=== PATIENT | male | born 1975 | race Caucasian/White ===

== ENCOUNTER 2017-05-13 14:24 | Emergency (ER) | payer BC, OTHER ==
[2017-05-13] MEDS ORDERED: HYDROmorphone 0.5 MG/0.5 ML Syringe IVPUSH ONE ×2 (14:53→16:03)
[2017-05-13] MEDS ORDERED: Acetaminophen 325 MG Tab PO ONE (14:54)
[2017-05-13] MEDS ORDERED: Metoclopramide 10 MG/2 ML SDV IVPUSH ONE (14:54)
--- NOTE | 2017-05-13 14:57 | EDM.PDOC ---
ED HPI GENERAL MEDICAL PROBLEM - General Chief Complaint: Fever Stated Complaint: FEVER Time Seen by Provider: 05/13/17 14:53 Source of Information: Reports: Patient, Family (spouse) History Limitations: Reports: No Limitations - History of Present Illness INITIAL COMMENTS - FREE TEXT/NARRATIVE: 42-year-old male attends the ED in the Imminent of his . Acute onset of illness over the last 24 hours with severe sore throat to the point that he can swallow. Patient still has his tonsils in. He was temperatures 104 when he had claude rigors during the night. He today has vomited 3. Bilious emesis no diarrhea. Denies cough or sputum production. Feels so thirsty but unable to keep down fluids. Usually he is otherwise well. He's currently not taking any medications. He is allergic to Ancef. Onset: Sudden Onset Date: 05/12/17 Duration: Hour(s): (Complained of sore throat about 2000 hrs. last night and has progressed gradually progressed intensity and severity.), Getting Worse Location: Reports: Generalized Quality: Reports: Ache, Burning, Stabbing, Throbbing Severity: Severe Improves with: Reports: None Worsens with: Reports: Other Context: Denies: Activity, Exercise (Trying to swallow), Lifting, Sick Contact, Trauma, Other Associated Symptoms: Reports: Diaphoresis, Fever/Chills, Headaches, Loss of Appetite, Malaise, Nausea/Vomiting, Weakness (Generalized.). Denies: Cough, cough w sputum, Rash, Seizure, Shortness of Breath, Syncope Treatments [employer]: Reports: Acetaminophen Headache Pain Score (Numeric/FACES): 8 - Related Data Allergies Allergy/AdvReac Type Severity Reaction Status Date / Time cefazolin [From Ancef] Allergy Respiratory Verified 05/13/17 14:41 Depression sertraline [From Zoloft] Allergy Anxiety Verified 05/13/17 14:42 Home Meds: Home Meds Naproxen [Naprosyn] 500 mg PO Q12HR PRN #10 tablet 12/29/16 [Rx] Orphenadrine [Norflex] 100 mg PO BID PRN #14 tab.er 12/29/16 [Rx] Azithromycin [Zithromax] 500 mg IV Q24H #7 adv 05/13/17 [Rx] oxyCODONE HCl/Acetaminophen [Percocet 5-325 mg Tablet] 1 - 2 each PO Q4H PRN # 20 tablet 05/13/17 [Rx] Past Medical History Respiratory History: Reports: Asthma Other Respiratory History: Exercise induced asthma Gastrointestinal History: Reports: Other (See Below) Other Gastrointestinal History: ulcerative collittis Musculoskeletal History: Reports: Fracture, Neck Pain, Chronic Other Musculoskeletal History: left leg, foot skull bilat arms, all ribs Neurological History: Reports: Concussion, Head Trauma Psychiatric History: Reports: PTSD Hematologic History: Reports: Blood Transfusion(s) - Past Surgical History Musculoskeletal Surgical History: Reports: Other (See Below) Social & Family History - Family History Family Medical History: Noncontributory - Tobacco Use Smoking Status *Q: Former Smoker - Caffeine Use Caffeine Use: Reports: Coffee, Energy Drinks, Soda, Tea - Recreational Drug Use Recreational Drug Use: No - Living Situation & Occupation Living situation: Reports: Occupation: Employed ED ROS ENT - Review of Systems Review Of Systems: See Below Constitutional: Reports: Fever, Chills, Malaise, Weakness, Fatigue, Decreased Appetite. Denies: Weight Loss HEENT: Reports: Throat Pain, Throat Swelling. Denies: Ear Pain Respiratory: Reports: No Symptoms. Denies: Cough Cardiovascular: Reports: No Symptoms Endocrine: Reports: Fatigue GI/Abdominal: Reports: Nausea, Vomiting : Reports: No Symptoms Musculoskeletal: Reports: Muscle Pain (Generalized myalgia.) Skin: Reports: No Symptoms Neurological: Reports: Dizziness, Headache, Difficulty Walking, Weakness (Due to weakness). Denies: Paresthesia, Pre-Existing Deficit, Seizure, Syncope, Tremors, Trouble Speaking, Gait Disturbance Psychiatric: Reports: No Symptoms Hematologic/Lymphatic: Reports: No Symptoms Immunologic: Reports: No Symptoms ED EXAM, ENT - Physical Exam Exam: See Below Exam Limited By: No Limitations General Appearance: Alert, WD/WN, Moderate Distress (Very apprehensive and very warm to palpation.) Eye Exam: Bilateral Eye: Normal Inspection Ears: TM Erythema (Both ears are little erythematous right is a little bit bulging.) Nose: Normal Inspection, Normal Mucousa Mouth/Throat: Pharyngeal Erythema, Throat Pain, Throat Swelling, Tonsillar Erythema, Tonsillar Swelling. No: Peritonsillar Mass, Teething, Tonsillar Exudates Head: Atraumatic, Normocephalic Neck: Normal Inspection, Supple, Non-Tender, Full Range of Motion. No: Lymphadenopathy (L), Lymphadenopathy (R) Respiratory/Chest: No Respiratory Distress, Lungs Clear, Normal Breath Sounds, No Accessory Muscle Use, Respiratory Distress (Mild tachypnea at rest.) Cardiovascular: Normal Peripheral Pulses, No Edema (Tachycardia at rest 102/m on my assessment.), No Gallop, No Murmur, No Rub, Tachycardia GI/Abdominal: Normal Bowel Sounds, Soft, Non-Tender, No Organomegaly. No: Guarding, Rigid, Rebound Back: Normal Inspection, Full Range of Motion. No: CVA Tenderness (L), CVA Tenderness (R) Extremities: Normal Inspection, Normal Range of Motion, Non-Tender, No Pedal Edema, Normal Capillary Refill Neurological: Alert, Oriented, CN II-XII Intact, Normal Cognition, Abnormal Gait Psychiatric: Normal Affect, Normal Mood Skin: Warm, Dry, Intact, Normal Color, No Rash Course - Vital Signs Last Recorded V/S: Last Vital Signs Temp 37.8 C 05/13/17 15:58 Pulse 85 05/13/17 14:42 Resp 18 05/13/17 14:42 BP 144/80 H 05/13/17 14:42 Pulse Ox 96 05/13/17 14:42 - Orders/Labs/Meds Orders: Active Orders 24 hr Category Date Time Status Chest 1V Frontal [CR] Stat Exams 05/13/17 14:55 Taken CULTURE BLOOD [BC] Stat Lab 05/13/17 15:15 Received CULTURE BLOOD [BC] Stat Lab 05/13/17 15:25 Received URINALYSIS W/MICROSCOPIC [UA W/MICROSCOPIC] [URIN] Stat Lab 05/13/17 14:55 Uncollected Dextrose 5%-0.9% NaCl [Dextrose 5%-Normal Saline] 1,000 Med 05/13/17 15:00 Active ml IV ASDIRECTED Ketorolac [Toradol] Med 05/13/17 15:00 Active 30 mg IVPUSH ONETIME Blood Culture x2 Reflex Set [OM.PC] Stat Oth 05/13/17 14:55 Ordered Medication Orders Dextrose/Sodium Chloride (Dextrose 5%-Normal Saline) 1,000 mls @ 999 mls/hr IV ASDIRECTED ZEKE Last Admin: 05/13/17 15:05 Dose: 999 mls/hr Ketorolac Tromethamine (Toradol) 30 mg IVPUSH ONETIME ZEKE Last Admin: 05/13/17 16:06 Dose: 30 mg Labs: Laboratory Tests 05/13/17 05/13/17 05/13/17 Range/Units 14:44 14:44 15:25 WBC 23.96 H (4.23-9.07) K/mm3 RBC 5.35 (4.63-6.08) M/mm3 Hgb 16.0 (13.7-17.5) gm/L Hct 45.7 (40.1-51.0) % MCV 85.4 (79.0-92.2) fl MCH 29.9 (25.7-32.2) pg MCHC 35.0 (32.2-35.5) g/dl RDW Std Deviation 43.0 (35.1-43.9) fL Plt Count 245 (163-337) K/mm3 MPV 10.1 (9.4-12.3) fl Neutrophils % (Manual) 89 H (40-60) % Band Neutrophils % 1 (0-10) % Lymphocytes % (Manual) 6 L (20-40) % Atypical Lymphs % 0 % Monocytes % (Manual) 3 (2-10) % Eosinophils % (Manual) 1 (0.8-7.0) % Basophils % (Manual) 0 L (0.2-1.2) Platelet Estimate Adequate RBC Morph Comment Normal Sodium 135 L (136-145) mEq/L Potassium 3.6 (3.5-5.1) mEq/L Chloride 100 (98-107) mEq/L Carbon Dioxide 23 (21-32) mEq/L Anion Gap 15.6 H (5-15) BUN 12 (7-18) mg/dL Creatinine 1.4 H (0.7-1.3) mg/dL Est Cr Clr Drug Dosing 78.47 mL/min Estimated GFR (MDRD) 56 (>60) mL/min BUN/Creatinine Ratio 8.6 L (14-18) Glucose 151 H (74-106) mg/dL Lactic Acid 1.4 (0.4-2.0) mmol/L Calcium 8.6 (8.5-10.1) mg/dL Total Bilirubin 0.7 (0.2-1.0) mg/dL AST 18 (15-37) U/L ALT 42 (16-63) U/L Alkaline Phosphatase 92 (46-116) U/L C-Reactive Protein 7.9 H* (<1.0) mg/dL Total Protein 7.8 (6.4-8.2) g/dl Albumin 4.1 (3.4-5.0) g/dl Globulin 3.7 gm/dL Albumin/Globulin Ratio 1.1 (1-2) Meds: Medications Generic Name Dose Route Start Last Admin Trade Name Freq PRN Reason Stop Dose Admin Dextrose/Sodium Chloride 1,000 mls @ 999 mls/hr 05/13/17 15:00 05/13/17 15:05 Dextrose 5%-Normal Saline IV 999 mls/hr ASDIRECTED ZEKE Administration Ketorolac Tromethamine 30 mg 05/13/17 15:00 05/13/17 16:06 Toradol IVPUSH 30 mg ONETIME ZEKE Administration Discontinued Medications Generic Name Dose Route Start Last Admin Trade Name Freq PRN Reason Stop Dose Admin Acetaminophen 975 mg 05/13/17 14:54 05/13/17 15:58 Tylenol PO 05/13/17 14:55 975 mg NOW ONE Administration Hydromorphone HCl 0.5 mg 05/13/17 14:53 05/13/17 15:05 Dilaudid IVPUSH 05/13/17 14:54 0.5 mg ONETIME ONE Administration Hydromorphone HCl 0.5 mg 05/13/17 16:03 05/13/17 16:11 Dilaudid IVPUSH 05/13/17 16:04 0.5 mg ONETIME ONE Administration Levofloxacin/Dextrose 750 mg/ 150 mls @ 100 mls/hr 05/13/17 15:03 05/13/17 15 :56 Premix IV 05/13/17 16:32 100 mls/hr ONETIME ONE Administration Sodium Chloride 1,000 mls @ 999 mls/hr 05/13/17 16:42 05/13/17 16:47 Normal Saline IV 05/13/17 17:42 999 mls/hr ONETIME ONE Administration Metoclopramide HCl 10 mg 05/13/17 14:54 05/13/17 15:02 Reglan IVPUSH 05/13/17 14:55 10 mg ONETIME ONE Administration - Radiology Interpretation Free Text/Narrative:: 42-year-old male attends the ED with acute onset of high fever of 140 and associated severe sore throat. This started last night about 100 hours and has progressed severely in intensity. He's vomited 3 today and appears quite toxic. Is very warm to palpation on examination. Ears show erythema bilaterally and dullness by think before fever. Oropharynx shows diffuse pharyngitis with erythema without exudate evident. No cervical adenopathy noted. Neck is supple. Chest is clear postage percussions mild tachycardia at rest. Benign abdominal examination integument normal. Suspect strep pharyngitis. Plan D5 normal saline at open. Given Dilaudid 0.5 mg IV with Toradol 30 mg IV and Reglan 10 mg IV for pain and nausea relief. Will receive 975 mils grams of Tylenol in 20 minutes after the Reglan is been instilled to bring his fever down. Will give Levaquin 750 mg IV once blood cultures 2 been collected since he is allergic to Ancef. - Re-Assessments/Exams Free Text/Narrative Re-Assessment/Exam: 05/13/17 16:26 CXR suggests a little infiltrate in the right lower lobe indicating possible early pneumonia. labs are back showing a white count of 23.96 with a marked left shift of 89% neutrophils 1% band cells. Hemoglobin is 16.0 hematocrit of 45.7. Sodium 135 potassium 3.6. Chloride 100 bicarbonate 23. And a gap is 15.6. Creatinine 1.4. Glucose 151. Lactic acid is 1.4. CRP is elevated at 7.9 patient's throat swab was positive for group A strep. is allergic to Ancef. He is receiving Levaquin 750 mg IV. He'll having a headache and he had not yet received his Toradol. Therefore Toradol 30 g will be given IV and I did give another dose of 0.5 mg of Dilaudid for headache and body ache relief. 05/13/17 16:59 will hang second liter of normal saline IV until he is feeling better. Tentatively he will be discharged home on oral antibiotics Zithromax 500 mg daily for 3 days then 250 mg once daily for 4 more days. He is acutely toxic from the current streptococcal infection. Will be off work until next week. Pain medicine will be Percocet 5/325 one or 2 every 4-6 hours as needed for pain relief in combination with Motrin 600 mg every 6 hours for fever and pain relief. 05/13/17 17:43 he is cooled off substantially fever is gone. Still has a quite a bad headache. He can use Percocet for this. I did write a Percocet prescription through the instrumented machine will not need antibiotic until tomorrow. They will have to go to the drugstore to warehouse picker some Advil for him. Departure - Departure Time of Disposition: 17:44 Disposition: Home, Self-Care 01 Condition: Fair Clinical Impression: Streptococcal pharyngitis - Discharge Information Prescriptions: Azithromycin [Zithromax] 500 mg IV Q24H #7 adv oxyCODONE HCl/Acetaminophen [Percocet 5-325 mg Tablet] 1 - 2 each PO Q4H PRN # 20 tablet PRN Reason: pain relief. Referrals: PCP,None [Primary Care Provider] - Forms: ED Department Discharge, Return to Work/School Form Additional Instructions: Evaluation the emergent today in regards to acute febrile illness with severe sore throat. Identified to be group a Streptococcus positive from throat culture. This is caused a significant elevation of your white blood cell count and counts her current illness of generalized body ache headache etc. He received initial treatment in the ED to lower fever with Tylenol by mouth Toradol 30 mg IV. Given initial dose of antibiotic Levaquin 750 mg IV and rehydrated with normal saline. Dilaudid 0.5 mg 2 doses was given for pain relief. Reglan 10 mg IV for nausea. Treatment at home is to try and drink as much fluids as possible particularly Gatorade or Powerade which is identical to IV fluid replacement therapy. We'll need to start antibiotic Zithromax 500 mg once daily for 7 more days tomorrow morning. These had a boxer 24-hour lasting. Fever relief to be Motrin 600 mg every 6 hours which will leave a moderate amount of pain and headache as well Percocet tabs 03/12/25 one or 2 every 4-6 hours for pain relief not controlled by Motrin alone. Off work for the next 2 days until the fever settles and you can get back to eating regular diet. Expect improvement over the next 36 hours. - My Orders Last 24 Hours: My Active Orders 05/13/17 14:55 Chest 1V Frontal [CR] Stat URINALYSIS W/MICROSCOPIC [UA W/MICROSCOPIC] [URIN] Stat Blood Culture x2 Reflex Set [OM.PC] Stat 05/13/17 15:00 Dextrose 5%-0.9% NaCl [Dextrose 5%-Normal Saline] 1,000 ml IV ASDIRECTED Ketorolac [Toradol] 30 mg IVPUSH ONETIME 05/13/17 15:15 CULTURE BLOOD [BC] Stat 05/13/17 15:25 CULTURE BLOOD [BC] Stat - Assessment/Plan Last 24 Hours: My Active Orders 05/13/17 14:55 Chest 1V Frontal [CR] Stat URINALYSIS W/MICROSCOPIC [UA W/MICROSCOPIC] [URIN] Stat Blood Culture x2 Reflex Set [OM.PC] Stat 05/13/17 15:00 Dextrose 5%-0.9% NaCl [Dextrose 5%-Normal Saline] 1,000 ml IV ASDIRECTED Ketorolac [Toradol] 30 mg IVPUSH ONETIME 05/13/17 15:15 CULTURE BLOOD [BC] Stat 05/13/17 15:25 CULTURE BLOOD [BC] Stat
[2017-05-13] MEDS ORDERED: Dextrose 5%-0.9% NaCl 1,000 ML IV SCH (15:00)
[2017-05-13] MEDS ORDERED: Ketorolac 30 MG/ML SDV IVPUSH SCH (15:00)
[2017-05-13] MEDS ORDERED: Levofloxacin/Dextrose 5%-Water 750 MG in Premix Bag 1 BAG IV ONE (15:03)
[2017-05-13] MEDS ORDERED: Sodium Chloride 0.9% 1,000 ML IV ONE (16:42)
[2017-05-13 18:59] VITALS: BP 113/61
--- NOTE | 2017-05-14 08:02 | CR ---
Chest: Portable view of the chest was obtained. Comparison: No previous study. Heart size and mediastinum are within normal limits for portable technique. Lungs are clear. Bony structures are grossly intact. Impression: 1. Nothing acute is identified on portable chest x-ray. Diagnostic code #1
== END 2017-05-13 19:01 | disposition home or self-care (01) ==
LOC: JD.ED 14:24
DX: J02.0 Streptococcal pharyngitis (principal); J45.909 Unspecified asthma, uncomplicated; Z88.1 Allergy status to other antibiotic agents; Z88.8 Allergy status to other drugs, medicaments and biological substances; Z87.891 Personal history of nicotine dependence
CPT/HCPCS: 36415; 71010; 80053; 81001; 83605; 85025; 86140; 87040; 87430; 96361; 96365; 96375; 96376; 99284; A9270; J1170; J1885; J1956; J2765; J7040; J7042; 99283

== ENCOUNTER 2018-08-09 00:35 | Emergency (ER) | payer BC ==
[2018-08-09 00:49] VITALS: BP 142/86
[2018-08-09] MEDS ORDERED: Ketorolac 30 MG/ML SDV IVPUSH SCH (01:00)
[2018-08-09] MEDS ORDERED: Sodium Chloride 0.9% 1,000 ML IV SCH (01:00)
--- NOTE | 2018-08-09 01:01 | EDM.PDOC ---
ED HPI GENERAL MEDICAL PROBLEM - General Chief Complaint: Chest Pain Stated Complaint: CHEST PAIN Time Seen by Provider: 08/09/18 00:56 Source of Information: Reports: Patient History Limitations: Reports: No Limitations - History of Present Illness INITIAL COMMENTS - FREE TEXT/NARRATIVE: 43-year-old male presents to the ED with a three-hour history of left precordial chest discomfort rating through to his back under his scapula. Radiates around the left lateral thorax into his back. Does hurt to take a deep breath. He has no cough or sputum production no fever or chills. No history of coronary disease. Takes only Concerta for ADD H. Has no known history of hypertension. He chews tobacco. Pain came on while at work [place] of [facility]. He works on a [employer] crew. Has never had heartburn. Occasional alcohol user. Onset: Sudden Onset Date: 08/08/18 Onset Time: 22:30 Duration: Hour(s): Location: Reports: Chest (Precordial chest pain radiating along the left thoracic ribs into his infrascapular area. Pain also radiates into the left shoulder and medial arm to the elbow. Describes it as a deep aching pain worsened by deep breathing with a sharp component at that time. ) Quality: Reports: Ache, Dull, Stabbing (With deep breathing I pleuritic component to the pain) Severity: Moderate (It's the pain is 4 out of 10.) Improves with: Reports: Rest Worsens with: Reports: Other (Certain movements make it worse and deep breathing makes it worse.) Context: Reports: Other (Sudden onset of left precordial chest pain while at work tonight.). Denies: Activity, Exercise, Lifting, Sick Contact, Trauma Associated Symptoms: Reports: Chest Pain, Shortness of Breath. Denies: Confusion, Cough, Diaphoresis, Fever/Chills, Headaches, Loss of Appetite, Nausea /Vomiting, Rash, Seizure, Syncope (Pain is worsened by deep breathing) Treatments JOB CAPTAIN: Reports: Other (see below) (None.) Middle Chest Pain Score (Numeric/FACES): 7 - Related Data Allergies Allergy/AdvReac Type Severity Reaction Status Date / Time cefazolin [From Ancef] Allergy Respiratory Verified 08/09/18 00:50 Depression sertraline [From Zoloft] Allergy Anxiety Verified 08/09/18 00:50 Home Meds: Home Meds Methylphenidate HCl [Concerta] 36 mg PO DAILY 08/09/18 [History] Past Medical History Respiratory History: Reports: Asthma Other Respiratory History: Exercise induced asthma Gastrointestinal History: Reports: Other (See Below) Other Gastrointestinal History: ulcerative collittis Musculoskeletal History: Reports: Fracture, Neck Pain, Chronic Other Musculoskeletal History: left leg, foot skull bilat arms, all ribs Neurological History: Reports: Concussion, Head Trauma Psychiatric History: Reports: PTSD Hematologic History: Reports: Blood Transfusion(s) - Past Surgical History Musculoskeletal Surgical History: Reports: Other (See Below) Social & Family History - Family History Family Medical History: Noncontributory - Caffeine Use Caffeine Use: Reports: Coffee, Energy Drinks, Soda, Tea - Living Situation & Occupation Living situation: Reports: Occupation: Employed ED ROS GENERAL - Review of Systems Review Of Systems: See Below Constitutional: Denies: Fever, Chills, Malaise, Weakness, Fatigue, Decreased Appetite, Weight Loss HEENT: Reports: No Symptoms Respiratory: Reports: Shortness of Breath, Pleuritic Chest Pain (Hurts to take a deep breath at this time.). Denies: Cough ( Appointment pleuritic left-sided chest pain with deep breathing.), Sputum, Hemoptysis Cardiovascular: Reports: Chest Pain. Denies: Blood Pressure Problem (Left precordium starting about 20-30 hours last evening while at work.), Claudication , Dyspnea on Exertion, Edema, Lightheadedness, Orthopnea, Palpitations Endocrine: Reports: No Symptoms GI/Abdominal: Reports: No Symptoms : Reports: No Symptoms Musculoskeletal: Reports: Back Pain (Does have some pain in the infrascapular area on left side.) Skin: Reports: No Symptoms Neurological: Reports: No Symptoms Psychiatric: Reports: No Symptoms Hematologic/Lymphatic: Reports: No Symptoms Immunologic: Reports: No Symptoms ED EXAM, GENERAL - Physical Exam Exam: See Below Exam Limited By: No Limitations General Appearance: Alert, WD/WN, Anxious, Mild Distress, Other (Vital signs revealed a slightly elevated at 142/86. Respiratory rate of 14/m with O2 sats of 99% on room air. Afebrile.) Eye Exam: Bilateral Eye: Normal Inspection Throat/Mouth: Normal Inspection, Normal Lips, Normal Teeth, Normal Oropharynx Head: Atraumatic, Normocephalic Neck: Normal Inspection, Supple, Non-Tender, Full Range of Motion. No: Carotid Bruit, Lymphadenopathy (L), Lymphadenopathy (R) Respiratory/Chest: No Respiratory Distress, Lungs Clear, Normal Breath Sounds, No Accessory Muscle Use, Other (Does have chest wall tenderness ribs to 3 and 4 particular the fourth rib in the midclavicular line and into the left mid axillary line along the fourth rib.) Cardiovascular: Normal Peripheral Pulses, Regular Rate, Rhythm, No Edema, No Gallop, No Murmur Peripheral Pulses: 3+: Carotid (L), Carotid (R), Posterior Tibial (L), Posterior Tibial (R), Dorsalis Pedis (L), Dorsalis Pedis (R) GI/Abdominal: Normal Bowel Sounds, Soft, Non-Tender, No Organomegaly, Other ( Previous appendectomy with scar noted) Back Exam: Normal Inspection, Full Range of Motion, Other (Tender to palpation over rib head thoracic 6 left back. Mild overlying muscle spasm.). No: CVA Tenderness (L), CVA Tenderness (R) Extremities: Normal Inspection, Normal Range of Motion, Non-Tender, No Pedal Edema, Normal Capillary Refill Neurological: Alert, Oriented, CN II-XII Intact, Normal Cognition, Normal Gait Psychiatric: Normal Affect, Normal Mood Skin Exam: Warm, Dry, Intact, Normal Color, No Rash EKG INTERPRETATION EKG Date: 08/09/18 Time: 00:47 Rhythm: NSR Rate (Beats/Min): 60 [place]: Normal P-Wave: Present QRS: Normal ST-T: Normal (Mildly prolonged for rate) QT: Prolonged EKG Interpretation Comments: No signs of ischemia. Essentially normal ECG Course - Vital Signs Last Recorded V/S: Last Vital Signs Temp 36.2 C 08/09/18 00:45 Pulse 62 08/09/18 00:45 Resp 13 08/09/18 00:45 BP 142/86 H 08/09/18 00:45 Pulse Ox 99 08/09/18 00:45 - Orders/Labs/Meds Orders: Active Orders 24 hr Category Date Time Status EKG Documentation Completion [RC] STAT Care 08/09/18 00:56 Active Chest 1V Frontal [CR] Stat Exams 08/09/18 00:56 Taken Ketorolac [Toradol] Med 08/09/18 01:00 Active 30 mg IVPUSH ONETIME Sodium Chloride 0.9% [Normal Saline] 1,000 ml Med 08/09/18 01:00 Active IV ASDIRECTED Medication Orders Sodium Chloride (Normal Saline) 1,000 mls @ 125 mls/hr IV ASDIRECTED ZEKE Last Admin: 08/09/18 01:04 Dose: 125 mls/hr Ketorolac Tromethamine (Toradol) 30 mg IVPUSH ONETIME ZEKE Last Admin: 08/09/18 01:04 Dose: 30 mg Labs: Laboratory Tests 08/09/18 08/09/18 08/09/18 Range/Units 00:58 00:59 01:05 WBC 8.23 (4.23-9.07) K/mm3 RBC 5.04 (4.63-6.08) M/mm3 Hgb 14.8 (13.7-17.5) gm/L Hct 43.4 (40.1-51.0) % MCV 86.1 (79.0-92.2) fl MCH 29.4 (25.7-32.2) pg MCHC 34.1 (32.2-35.5) g/dl RDW Std Deviation 45.1 H (35.1-43.9) fL Plt Count 302 (163-337) K/mm3 MPV 9.6 (9.4-12.3) fl Neutrophils % (Manual) 46 (40-60) % Band Neutrophils % 1 (0-10) % Lymphocytes % (Manual) 45 H (20-40) % Atypical Lymphs % 0 % Monocytes % (Manual) 4 (2-10) % Eosinophils % (Manual) 4 (0.8-7.0) % Basophils % (Manual) 0 L (0.2-1.2) Platelet Estimate Adequate RBC Morph Comment Normal D-Dimer, Quantitative < 0.19 L (0.19-0.50) mg/L Sodium 137 (136-145) mEq/L Potassium 3.6 (3.5-5.1) mEq/L Chloride 104 (98-107) mEq/L Carbon Dioxide 25 (21-32) mEq/L Anion Gap 11.6 (5-15) BUN 15 (7-18) mg/dL Creatinine 1.2 (0.7-1.3) mg/dL Est Cr Clr Drug Dosing 88.02 mL/min Estimated GFR (MDRD) > 60 (>60) mL/min BUN/Creatinine Ratio 12.5 L (14-18) Glucose 91 (74-106) mg/dL Calcium 8.8 (8.5-10.1) mg/dL Total Bilirubin 0.4 (0.2-1.0) mg/dL AST 18 (15-37) U/L ALT 38 (16-63) U/L Alkaline Phosphatase 104 (46-116) U/L CK-MB (CK-2) 2.4 (0-3.6) ng/ml Troponin I < 0.017 (0.00-0.056) ng/mL Total Protein 7.2 (6.4-8.2) g/dl Albumin 3.8 (3.4-5.0) g/dl Globulin 3.4 gm/dL Albumin/Globulin Ratio 1.1 (1-2) Meds: Medications Generic Name Dose Route Start Last Admin Trade Name Freq PRN Reason Stop Dose Admin Sodium Chloride 1,000 mls @ 125 mls/hr 08/09/18 01:00 08/09/18 01:04 Normal Saline IV 125 mls/hr ASDIRECTED ZEKE Administration Ketorolac Tromethamine 30 mg 08/09/18 01:00 08/09/18 01:04 Toradol IVPUSH 30 mg ONETIME ZEKE Administration Discontinued Medications Generic Name Dose Route Start Last Admin Trade Name Freq PRN Reason Stop Dose Admin Methylprednisolone Sodium Succinate 125 mg 08/09/18 02:14 08/09/18 02:21 Solu-Medrol IVPUSH 08/09/18 02:15 125 mg ONETIME ONE Administration - Radiology Interpretation Free Text/Narrative:: 43-year-old male presents to the ED with a 2-1/2 hour history of left precordial chest pain. Pain is constant and radiates into his left infrascapular area into the left shoulder and medial aspect of the left arm. Pain radiate along the left thorax around into his back. Pain is worsened by deep breathing eye pleuritic component to the pain. No cough or sputum production. No history of coronary disease. Examination reveals significant chest wall pain ribs to 3 and 4 particular the fourth rib midclavicular line and into the left midaxillary line. Also has a rib head subluxation at thoracic 6 in his left upper back. HEENT appears to be musculoskeletal in origin. ECG is normal sinus rhythm at 60/m with no signs of ischemia. Plan IV normal saline at 125 mils per hour. Given Toradol 30 mg IV for pain relief. Plan routine labs in one view chest x-ray to be done - Re-Assessments/Exams Free Text/Narrative Re-Assessment/Exam: 08/09/18 01:20 chest x-ray done portable is within normal limits. Normal cardiac silhouette. Clear lung amos. No obvious abnormal lesions of the ribs 08/09/18 01:40 Hematology is back. Reveals a normal white count at 8.23. 46% neutrophils 1% bands and 45% lymphocytes suggesting a viral infection. Hemoglobin is 14.8 with hematocrit of 43.4. Platelet count is normal 302,000. D- dimer is less than 0.19. 08/09/18 02:08 Chemistry is back. Sodium is 137 with potassium of 3.6. Cord is 104 with a bicarbonate 25 .anion gap.Is 11.6. BUN is 15 with a creatinine of 1.2. GFR is greater than 60. Glucose is 91. Calcium is 8.8. Liver function is normal. CK-MB fraction is 2.4. Troponin I is less than 0.017. Therefore labs reveal no evidence of heart related illness. His chest wall in origin probably viral in origin. Will give him Cymetra 125 mg IV. He will use ibuprofen 600 mg every 6 hours needed for relief of chest wall pain or Aleve 2 tablets every 8 hours until better. Departure - Departure Time of Disposition: 02:11 Disposition: Home, Self-Care 01 Condition: Fair Clinical Impression: Acute chest wall pain Instructions: Chest Wall Pain, [id number] Referrals: Jose Whitaker Jr, MD [Primary Care Provider] - Forms: ED Department Discharge, ED Return to Work/School Form Additional Instructions: Evaluation the emergency room tonight in regards to development of diffuse left anterior chest wall pain rating to your left back. Ulcerated interior left shoulder and inner arm. He started about 2 and half to 3 hours prior to coming to the ED. Examination reveals marked chest wall pain on patient of ribs to 3 and 4 particular the fourth rib in the anterior chest wall. This rib has a nerve the troubles underneath it and into her left arm. Examination her back shows a rib head subluxations or mild dislocation of the rib head at thoracic level 6. Is is likely the cause of your upper back pain. This is usually slipped back into place by a chiropractor if needed. Complete workup carried out in the ED revealed no evidence of heart related illness. ECG and chest x- ray were normal. Also labs for heart attack by clot in the lung were negative. Pain is due to inflammation of the lining of the rib in your anterior chest wall. Cause inflammation of the underlying nerve with referred pain into her upper back. Treatment in the ED was Toradol 30 mg intravenously and Solu-Medrol 125 mg IV to relieve pain and inflammation. Treatment at home is Motrin 600 mg every 6 hours or Aleve 2 tablets every 8 hours as needed for the next 3-5 days until pain settles down completely. Note this pain can last as long as 10-14 days but should improve over the next 2 days with anti-inflammatory treatment. May return to work finish out her shift tonight if you so desire with no restrictions. - My Orders Last 24 Hours: My Active Orders 08/09/18 00:56 EKG Documentation Completion [RC] STAT Chest 1V Frontal [CR] Stat 08/09/18 01:00 Ketorolac [Toradol] 30 mg IVPUSH ONETIME Sodium Chloride 0.9% [Normal Saline] 1,000 ml IV ASDIRECTED - Assessment/Plan Last 24 Hours: My Active Orders 08/09/18 00:56 EKG Documentation Completion [RC] STAT Chest 1V Frontal [CR] Stat 08/09/18 01:00 Ketorolac [Toradol] 30 mg IVPUSH ONETIME Sodium Chloride 0.9% [Normal Saline] 1,000 ml IV ASDIRECTED
[2018-08-09] MEDS ORDERED: methylPREDNISolone Sodium Succinate 125 MG/2 ML SDV IVPUSH ONE (02:14)
--- NOTE | 2018-08-09 17:18 | CR ---
Chest: Portable view of the chest was obtained. Comparison: Chest x-ray of 05/13/17. Heart size and mediastinum are normal. Lungs are clear. Bony structures are grossly intact. Impression: 1. Nothing acute is appreciated on portable chest x-ray. Diagnostic code #1
== END 2018-08-09 02:30 | disposition home or self-care (01) ==
LOC: JD.ED 00:35
DX: R07.2 Precordial pain (principal); J45.909 Unspecified asthma, uncomplicated; F17.290 Nicotine dependence, other tobacco product, uncomplicated; Z88.8 Allergy status to other drugs, medicaments and biological substances; Z79.899 Other long term (current) drug therapy
CPT/HCPCS: 36415; 71045; 80053; 82553; 84484; 85007; 85027; 85379; 93005; 96361; 96374; 96375; 99285; J1885; J2930; J7040; 93010; 99284-25

== ENCOUNTER 2019-10-21 15:57 | Emergency (ER) | payer BC ==
[2019-10-21 16:09] VITALS: BP 133/90; PULSE 66
--- NOTE | 2019-10-21 16:17 | EDM.PDOC ---
ED HPI GENERAL MEDICAL PROBLEM - General Chief Complaint: Headache Stated Complaint: SPINALTAP MON NOW HEADACHE & NAUSEA WHEN STANDING Time Seen by Provider: 10/21/19 16:12 Source of Information: Reports: Patient, RN Notes Reviewed - History of Present Illness INITIAL COMMENTS - FREE TEXT/NARRATIVE: 44-year-old male comes in with headache. Tap done by radiology in [place] 3 days ago. He states he felt well enough to work the next day. He did develop mild headache throughout that day. They when driving he developed "severe headache. It sounds like he just got back to town not too long ago and continues to have very severe headache today. Because worse sitting and standing but he continues to have moderate headache at rest lying down as well. He states he has vomited a couple of times, no cough fever or chills. He denies history of prior headaches. He states the spinal tap was done for "MS type symptoms". Head Pain Score (Numeric/FACES): 8 - Related Data Allergies Allergy/AdvReac Type Severity Reaction Status Date / Time cefazolin [From Ancef] Allergy Respiratory Verified 10/21/19 16:04 Depression sertraline [From Zoloft] Allergy Anxiety Verified 10/21/19 16:04 Home Meds: Home Meds Methylphenidate HCl [Concerta] 36 mg PO DAILY 08/09/18 [History] Past Medical History Respiratory History: Reports: Asthma Other Respiratory History: Exercise induced asthma Gastrointestinal History: Reports: Other (See Below) Other Gastrointestinal History: ulcerative collittis Musculoskeletal History: Reports: Fracture, Neck Pain, Chronic Other Musculoskeletal History: left leg, foot skull bilat arms, all ribs Neurological History: Reports: Concussion, Head Trauma Psychiatric History: Reports: PTSD Hematologic History: Reports: Blood Transfusion(s) - Past Surgical History Musculoskeletal Surgical History: Reports: Other (See Below) Social & Family History - Family History Family Medical History: Noncontributory - Caffeine Use Caffeine Use: Reports: Coffee, Energy Drinks, Soda, Tea - Living Situation & Occupation Living situation: Reports: Occupation: Employed ED ROS GENERAL - Review of Systems Review Of Systems: See Below Constitutional: Denies: Fever, Chills, Diaphoresis HEENT: Denies: Sinus Problem, Throat Pain Respiratory: Denies: Shortness of Breath Cardiovascular: Denies: Chest Pain GI/Abdominal: Denies: Abdominal Pain Musculoskeletal: Denies: Neck Pain, Back Pain Skin: Reports: No Symptoms Neurological: Reports: Headache. Denies: Numbness, Tingling, Trouble Speaking, Difficulty Walking, Weakness - Physical Exam Exam: See Below General Appearance: Alert, Moderate Distress Ears: Normal External Exam Throat/Mouth: Normal Inspection, Normal Oropharynx Head Exam: Atraumatic. No: Facial Swelling Neck: Supple, Full Range of Motion Respiratory/Chest: No Respiratory Distress, Lungs Clear, Normal Breath Sounds Cardiovascular: Regular Rate, Rhythm GI/Abdominal: Soft, Non-Tender Neuro Exam (Abbreviated): Alert, Oriented, No Motor/Sensory Deficits Back Exam: Normal Inspection Skin Exam: Warm, Dry, Normal Color Course - Vital Signs Last Recorded V/S: Last Vital Signs Temp 98.7 F 10/21/19 16:05 Pulse 66 10/21/19 16:05 Resp 16 10/21/19 16:05 BP 133/90 10/21/19 16:05 Pulse Ox 100 10/21/19 16:05 - Orders/Labs/Meds Orders: Active Orders 24 hr Category Date Time Status Peripheral IV Care [RC] . DIRECTED Care 10/21/19 16:31 Active Peripheral IV Insertion Adult [OM.PC] Stat Oth 10/21/19 16:29 Ordered Labs: Laboratory Tests 10/21/19 10/21/19 Range/Units 16:45 16:45 WBC 7.34 (4.23-9.07) K/mm3 RBC 4.72 (4.63-6.08) M/mm3 Hgb 14.2 (13.7-17.5) gm/dl Hct 41.0 (40.1-51.0) % MCV 86.9 (79.0-92.2) fl MCH 30.1 (25.7-32.2) pg MCHC 34.6 (32.2-35.5) g/dl RDW Std Deviation 44.3 H (35.1-43.9) fL Plt Count 274 (163-337) K/mm3 MPV 9.5 (9.4-12.3) fl Neut % (Auto) 60.1 (34.0-67.9) % Lymph % (Auto) 24.8 (21.8-53.1) % [place] % (Auto) 12.8 H (5.3-12.2) % Eos % (Auto) 2.0 (0.8-7.0) Baso % (Auto) 0.3 (0.1-1.2) % Neut # (Auto) 4.41 (1.78-5.38) K/mm3 Lymph # (Auto) 1.82 (1.32-3.57) K/mm3 [place] # (Auto) 0.94 H (0.30-0.82) K/mm3 Eos # (Auto) 0.15 (0.04-0.54) K/mm3 Baso # (Auto) 0.02 (0.01-0.08) K/mm3 Sodium 141 (136-145) mEq/L Potassium 3.7 (3.5-5.1) mEq/L Chloride 105 (98-107) mEq/L Carbon Dioxide 27 (21-32) mEq/L Anion Gap 12.7 (5-15) BUN 16 (7-18) mg/dL Creatinine 1.2 (0.7-1.3) mg/dL Est Cr Clr Drug Dosing 87.12 mL/min Estimated GFR (MDRD) > 60 (>60) mL/min BUN/Creatinine Ratio 13.3 L (14-18) Glucose 103 (74-106) mg/dL Calcium 8.7 (8.5-10.1) mg/dL Total Bilirubin 0.3 (0.2-1.0) mg/dL AST 16 (15-37) U/L ALT 33 (16-63) U/L Alkaline Phosphatase 103 (46-116) U/L Total Protein 6.8 (6.4-8.2) g/dl Albumin 3.7 (3.4-5.0) g/dl Globulin 3.1 gm/dL Albumin/Globulin Ratio 1.2 (1-2) Meds: Medications Discontinued Medications Generic Name Dose Route Start Last Admin Trade Name Freq PRN Reason Stop Dose Admin Diphenhydramine HCl 25 mg 10/21/19 16:29 10/21/19 16:48 Benadryl IVPUSH 10/21/19 16:30 25 mg ONETIME ONE Administration Haloperidol Lactate 5 mg 10/21/19 16:37 10/21/19 16:53 Haldol IVPUSH 10/21/19 16:38 5 mg ONETIME ONE Administration Hydromorphone HCl 1 mg 10/21/19 17:21 10/21/19 17:26 Dilaudid IVPUSH 10/21/19 17:22 1 mg ONETIME ONE Administration Sodium Chloride 1,000 mls @ 999 mls/hr 10/21/19 16:45 10/21/19 16:48 Normal Saline IV 999 mls/hr ONETIME ZEKE Administration Sodium Chloride 1,000 mls @ 999 mls/hr 10/21/19 18:12 10/21/19 18:16 Normal Saline IV 10/21/19 19:12 999 mls/hr ONETIME ONE Administration Metoclopramide HCl 5 mg 10/21/19 16:29 10/21/19 16:48 Reglan IVPUSH 10/21/19 16:30 5 mg ONETIME ONE Administration Sodium Chloride 10 ml 10/21/19 16:29 10/21/19 17:27 Saline Flush FLUSH 10 ml ASDIRECTED PRN Administration Keep Vein Open - Re-Assessments/Exams Free Text/Narrative Re-Assessment/Exam: 10/21/19 17:58 I did discuss this with our nurse sole cutter sap business objects consultant. Because this has been over 3 days and he does have headache even lying flat at rest a blood patch is unlikely to be of any meaningful benefit and doing the patch presents risk of further complications. We both agree not advisable at this time. Started out with Reglan 5 mg IV, Benadryl 25 mg IV, Haldol 5 mg IV. This did make him sleepy although he denied that and C/O continued moderately severe Kennedy even lying flat not moving . More recently have titrated some Dilaudid IV. 10/21/19 18:39. Sleeping. 10/21/19 19:23. Still sleeping. His is ready to take him home. Discharge instr. as documented. Departure - Departure Time of Disposition: 19:24 Disposition: Home, Self-Care 01 Condition: Fair Clinical Impression: Headache Qualifiers: Headache type: unspecified Headache chronicity pattern: unspecified pattern Intractability: not intractable Qualified Code(s): R51 - Headache - Discharge Information Instructions: Tension Headache, Adult Referrals: Jose Whitaker Jr, MD [Primary Care Provider] - Forms: ED Department Discharge, ED Return to Work/School Form Additional Instructions: Rest, No work recomended tomorrow or for the remainder of this week. Alternate tylenol and ibuprofen if needed for any further headache. Call or see your medical provider if headache not resolving over the next 2 to 3 days as expected. Sepsis Event Note - Evaluation Sepsis Screening Result: No Definite Risk - Focused Exam Date Exam was Performed: 10/22/19 Time Exam was Performed: 07:22 - My Orders Last 24 Hours: My Active Orders 10/21/19 16:29 Peripheral IV Insertion Adult [OM.PC] Stat 10/21/19 16:31 Peripheral IV Care [RC] . DIRECTED - Assessment/Plan Last 24 Hours: My Active Orders 10/21/19 16:29 Peripheral IV Insertion Adult [OM.PC] Stat 10/21/19 16:31 Peripheral IV Care [RC] . DIRECTED
[2019-10-21] MEDS ORDERED: diphenhydrAMINE 50 MG/ML SDV IVPUSH ONE (16:29)
[2019-10-21] MEDS ORDERED: Metoclopramide 10 MG/2 ML SDV IVPUSH ONE (16:29)
[2019-10-21] MEDS ORDERED: Sodium Chloride 0.9% 10 ML Syringe FLUSH PRN (16:29)
[2019-10-21] MEDS ORDERED: Haloperidol Lactate 5 MG/ML SDV IVPUSH ONE (16:37)
[2019-10-21] MEDS ORDERED: Sodium Chloride 0.9% 1,000 ML IV SCH (16:45)
[2019-10-21] MEDS ORDERED: HYDROmorphone 1 MG/ML Syringe IVPUSH ONE (17:21)
[2019-10-21] MEDS ORDERED: Sodium Chloride 0.9% 1,000 ML IV ONE (18:12)
== END 2019-10-21 19:40 | disposition home or self-care (01) ==
LOC: JD.ED 15:57
DX: R51 Headache (principal); J45.909 Unspecified asthma, uncomplicated; Z88.1 Allergy status to other antibiotic agents; Z88.8 Allergy status to other drugs, medicaments and biological substances
CPT/HCPCS: 36415; 80053; 85025; 96361; 96374; 96375; 99284; J1170; J1200; J1630; J2765; J7030

== ENCOUNTER 2023-10-22 13:48 | Emergency (ER) | payer MEDICAID, OTHER ==
[2023-10-22] MEDS ORDERED: Dextrose 5%-0.9% NaCl 1,000 ML IV SCH (14:00)
[2023-10-22 14:11] LABS: BASOPHILS ABSOLUTE AUTO 0.1 K/mm3 (0.0-0.2); BASOPHILS PERCENT AUTO 0.8 % (0.0-1.0); EOSINOPHILS ABSOLUTE AUTO 0.1 K/mm3 (0.0-0.4); EOSINOPHILS PERCENT AUTO 2.2 % (0.0-6.0); HEMATOCRIT 41.7 % (42.0-52.0); HEMOGLOBIN 13.3 gm/dl (14.0-18.0); IMMATURE GRAN ABSOLUTE AUTO 0.03 K/mm3 (0.00-0.05); IMMATURE GRAN PERCENT AUTO 0.5 % (0.0-0.4); LYMPHOCYTES ABSOLUTE AUTO 1.2 K/mm3 (1.0-4.8); LYMPHOCYTES PERCENT AUTO 18.9 % (24.0-44.0); MEAN CORPUSCULAR HEMOGLOBIN 26.3 pg (28.0-32.0); MEAN CORPUSCULAR HGB CONC 31.9 g/dl (32.0-36.0); MEAN CORPUSCULAR VOLUME 82.6 fl (83.0-99.0); MEAN PLATELET VOLUME 9.2 fl (9.4-12.4); MONOCYTES ABSOLUTE AUTO 0.8 K/mm3 (0.0-0.8); MONOCYTES PERCENT AUTO 12.2 % (0.0-8.0); NEUTROPHILS ABSOLUTE AUTO 4.2 K/mm3 (1.8-7.7); NEUTROPHILS PERCENT AUTO 65.4 % (41.0-71.0); PLATELET COUNT,PLT 278 K/mm3 (150-400); RED BLOOD CELL COUNT 5.05 M/mm3 (4.52-5.90)
[2023-10-22 14:33] LABS: ALANINE AMINOTRANSFERASE,ALT 24 U/L (16-63); ALBUMIN 3.7 g/dl (3.4-5.0); ALKALINE PHOSPHATASE 83 U/L (46-116); ANION GAP 11.2 (5-15); ASPARTATE AMNIOTRANSFERASE,AST 16 U/L (15-37); BILIRUBIN TOTAL 0.3 mg/dL (0.2-1.0); BLOOD UREA NITROGEN,BUN 12 mg/dL (7-18); BUN/CREATININE RATIO 9.2 (14-18); C-REACTIVE PROTEIN <0.2 mg/dL (<1.0); CARBON DIOXIDE,CO2 30 mEq/L (21-32); CHLORIDE,CL 104 mEq/L (98-107); CREATININE 1.3 mg/dL (0.7-1.3); ESTIMATED GFR 68 mL/min (>60); POTASSIUM,K 4.2 mEq/L (3.5-5.1); PROTEIN TOTAL,TP 7.6 g/dl (6.4-8.2); SODIUM,NA 141 mEq/L (136-145)
[2023-10-22 14:34] LABS: PROTHROMBIN TIME 9.8 SECONDS (9.7-12.0)
[2023-10-22 14:35] LABS: GLUCOSE RANDOM 113 mg/dL (70-99); INR < 0.93; PTT,PARTIAL THROMBOPLSTIN TIME 25.7 SECONDS (21.7-31.4)
[2023-10-22] MEDS ORDERED: HYDROmorphone 0.5 MG/0.5 ML Syringe IVPUSH ONE (15:03)
[2023-10-22] MEDS ORDERED: Metoclopramide 10 MG/2 ML SDV IVPUSH ONE (15:03)
[2023-10-22] MEDS ORDERED: Hyoscyamine 0.125 MG Tab.SL SL ONE (15:04)
[2023-10-22] MEDS ORDERED: Morphine 4 MG/ML Syringe IVPUSH ONE (17:07)
[2023-10-22] MEDS ORDERED: HYDROmorphone 1 MG/ML Syringe IVPUSH ONE (17:10)
[2023-10-22] MEDS ORDERED: Ketorolac 30 MG/ML SDV IVPUSH SCH (17:15)
[2023-10-22] MEDS ORDERED: Ketorolac 30 MG/ML SDV IVPUSH STA (17:31)
[2023-10-22 18:34] VITALS: BP 146/90; PULSE 90
== END 2023-10-22 18:34 | disposition home or self-care (01) ==
LOC: JD.ED 13:48
DX: R07.89 Other chest pain (principal); K22.4 Dyskinesia of esophagus; R51.9 Headache, unspecified; Z88.1 Allergy status to other antibiotic agents; Z88.8 Allergy status to other drugs, medicaments and biological substances; Z86.16 Personal history of COVID-19; Z90.49 Acquired absence of other specified parts of digestive tract
CPT/HCPCS: 36415; 71045; 80053; 84484; 85025; 85379; 85610; 85730; 86140; 93005; 96374; 96375; 96376; 99285; A9270; J1170; J1885; J2765; J7042; 93010; 99284

== ENCOUNTER 2024-01-30 09:33 | Emergency (ER) | payer MEDICAID, OTHER ==
[2024-01-30] MEDS: Sodium Chloride 0.9% 10 ML Syringe FLUSH PRN (10:46)
[2024-01-30 10:59] LABS: BASOPHILS PERCENT AUTO 0.5 % (0.0-1.0); EOSINOPHILS ABSOLUTE AUTO 0.2 K/mm3 (0.0-0.4); EOSINOPHILS PERCENT AUTO 2.9 % (0.0-6.0); HEMATOCRIT 34.9 % (42.0-52.0); IMMATURE GRAN ABSOLUTE AUTO 0.03 K/mm3 (0.00-0.05); IMMATURE GRAN PERCENT AUTO 0.5 % (0.0-0.4); LYMPHOCYTES ABSOLUTE AUTO 1.4 K/mm3 (1.0-4.8); LYMPHOCYTES PERCENT AUTO 24.8 % (24.0-44.0); MEAN CORPUSCULAR HEMOGLOBIN 25.6 pg (28.0-32.0); MEAN CORPUSCULAR HGB CONC 31.5 g/dl (32.0-36.0); MEAN CORPUSCULAR VOLUME 81.2 fl (83.0-99.0); MONOCYTES ABSOLUTE AUTO 0.8 K/mm3 (0.0-0.8); MONOCYTES PERCENT AUTO 13.6 % (0.0-8.0); NEUTROPHILS ABSOLUTE AUTO 3.4 K/mm3 (1.8-7.7); NEUTROPHILS PERCENT AUTO 57.7 % (41.0-71.0); PLATELET COUNT,PLT 293 K/mm3 (150-400); WHITE BLOOD CELL COUNT,WBC 5.81 K/mm3 (3.9-11.3)
[2024-01-30 11:09] LABS: A/G RATIO 0.9 (1-2); ALBUMIN 3.5 g/dl (3.4-5.0); ANION GAP 13.8 (5-15); BILIRUBIN TOTAL 0.3 mg/dL (0.2-1.0); BUN/CREATININE RATIO 10.8 (14-18); C-REACTIVE PROTEIN 0.95 mg/dL (<0.30); CALCIUM 8.5 mg/dL (8.5-10.1); CREATININE 1.2 mg/dL (0.7-1.3); EST CRCL DRUG DOSING (CG) 82.63 mL/min; POTASSIUM,K 3.8 mEq/L (3.5-5.1); PROTEIN TOTAL,TP 7.6 g/dl (6.4-8.2)
[2024-01-30 15:27] VITALS: BP 127/93; PULSE 67
== END 2024-01-30 15:22 | disposition home or self-care (01) ==
LOC: JD.ED 09:33
DX: K50.911 Crohn's disease, unspecified, with rectal bleeding (principal); J45.909 Unspecified asthma, uncomplicated; F17.210 Nicotine dependence, cigarettes, uncomplicated; Z88.8 Allergy status to other drugs, medicaments and biological substances; Z79.899 Other long term (current) drug therapy; Z86.16 Personal history of COVID-19; Z90.49 Acquired absence of other specified parts of digestive tract
CPT/HCPCS: 36415; 80053; 83605; 85025; 86140; 86850; 86900; 86901; 99284; J3490